=== PATIENT | male | born 1965 | race Caucasian/White ===

== ENCOUNTER → 2020-07-05 | Outpatient (CLI) | payer BC ==
[~2020-07-05] MED LIST: COLACE100 MG PO; LISINOPRIL20 MG PO; PERCOCET 5-3251 EACH PO; TOBRADEX 0.1%-0.5 ML OP; VITAMIN C500 M4 PO; VITAMIN D-40010 MCG PO; ZOFRAN4 MG PO
== END | disposition home or self-care (01) ==
LOC: COVID19 12:18
PROVIDERS: ATTEND Surgery
DX: Z01.818 Encounter for other preprocedural examination (principal)

== ENCOUNTER → 2020-07-09 | Day surgery (SDC) | payer BC ==
[2020-07-05 11:46] VITALS: BP 151/80
[~2020-07-09] VITALS: Ht 182.8 cm; Wt 77.1 kg
[2020-07-09] VITALS (7 sets, daily range): BP systolic 131–173; BP diastolic 57–86
== END | disposition home or self-care (01) ==
LOC: SDC 07-05 11:00
PROVIDERS: ATTEND Surgery
DX: K40.90 Unilateral inguinal hernia, without obstruction or gangrene, not specified as recurrent (principal); I10 Essential (primary) hypertension; Z79.899 Other long term (current) drug therapy